=== PATIENT | male | born 1980 | race Caucasian/White ===

== ENCOUNTER 2022-01-24 04:40 | Inpatient (IN) | payer OTHER, SELFPAY ==
[2022-01-24] VITALS (13 sets, daily range): BP systolic 115–145; BP diastolic 83–99; PULSE 75–99; RESP 16–18; TEMP 36.4–37.8; O2SAT 83–96; BMI 26.9
[2022-01-24] MEDS: KETOROLAC 15 MG/ML inj IVP ×2 (05:23→17:12)
[2022-01-24 05:30] LABS: Lactate* 0.7 mmol/L (0.5-1.9)
[2022-01-24 05:32] LABS: Basophils Percent Auto 0.3 % (0.0-3.0); Eosinophils Percent Auto 0.6 % (0.0-7.0); Hematocrit 44.1 % (37.0-53.0); Hemoglobin* 15.3 gm/dL (13.5-17.5); Immature Granulocytes Abs Auto 0.03 K/uL (0.00-0.30); Lymphocytes Percent Auto 8.5 % (20-44); Mean Corpuscular HGB Conc 35 gm/dL (32-36); Mean Corpuscular Hemoglobin 32 pg (26-34); Mean Corpuscular Volume 91 fL (80-100); Monocytes Percent Auto 7.9 % (0.0-11.0); Neutrophils Percent Auto 82.5 % (42.0-72.0); Platelet Count* 227 K/uL (140-440); RDW Coefficient of Variation % 12.4 % (11.5-15.5); Red Blood Count 4.83 m/uL (4.30-5.90)
[2022-01-24 05:37] LABS: Slide Review Reflex No
[2022-01-24 05:55] LABS: Albumin* 4.4 g/dL (3.3-5.0); Chloride* 104 mmol/L (96-114)
[2022-01-24 05:56] LABS: Potassium* 4.1 mmol/L (3.6-5.1); Sodium* 136 mmol/L (135-149)
[2022-01-24 05:58] LABS: Mononuclear WBC Body Fluid* 45 %; Polynuclear WBC Body Fluid* 55 %; RBC, Body Fluid* 19000; WBC, Body Fluid* 84
[2022-01-24 05:58] LABS: Alanine Aminotransferase* 23 U/L (4-50); Alkaline Phosphatase* 91 U/L (40-150); Aspartate Amino Transferase* 26 U/L (12-35); Bilirubin Direct* 0.1 mg/dL (0.0-0.5); Bilirubin Total* 0.9 mg/dL (0.1-1.5); Creatinine* 0.9 mg/dL (0.5-1.5); Estimated Glomerular Filt Rate 109 ml/min
[2022-01-24 05:59] LABS: Blood Urea Nitrogen* 12 mg/dL (5-24); Calcium* 9.3 mg/dL (8.4-10.6); Carbon Dioxide* 23 mmol/L (20-32); Glucose* 130 mg/dL (60-115)
[2022-01-24 06:01] LABS: BF Color Blood Tinged; BF Total Volume* 2
[2022-01-24 06:02] LABS: BF Clarity* Slightly Cloudy
[2022-01-24 06:02] LABS: C Reactive Protein* 4.5 mg/dL (0.5-1.0)
[2022-01-24 06:11] LABS: SARS PCR* Negative SARS-CoV-2 (Negative)
[2022-01-24 06:21] LABS: Erythrocyte SedimentationRate* 4 mm/hr (2-15)
--- NOTE | 2022-01-24 06:52 | ED.GENADULT ---
HPI - General Adult General Date Seen: 01/24/22 Chief complaint: Extremity Pain/Injury, Lower Stated complaint: sprain right knee Time Seen by Provider: 01/24/22 04:47 Source: patient History of Present Illness HPI narrative: Patient is a 41-year-old male who describes pain, swelling and redness developing in his right knee starting 2 days ago. Pain has worsened to the point that it is now severe, he is not able to walk and is not able to bend his knee. He has not had fevers that he knows of at home. Denies any trauma. No other joints are bothering him. Has never had anything like this before. Does take an immunosuppressant medication for ulcerative colitis. Denies any history of drug use. Drinks occasionally, no tobacco use. Has not had any chest pain, shortness of breath, vomiting or diarrhea. No other infectious complaints such as sore throat or cough. No other recent infections. Related Data Home Medications Medication Instructions Recorded Confirmed balsalazide 750 mg capsule 3,000 - 3,750 mg PO BID 01/24/22 01/24/22 Allergies Allergy/AdvReac Type Severity Reaction Status Date / Time No Known Drug Allergies Allergy Verified 01/24/22 04:52 Review of Systems Status of ROS: Reports: 10 or more systems reviewed and unremarkable except as noted in History and below [facility] Medical History Ulcerative colitis Social History Smoking Status: Unknown if ever smoked Non-prescribed substance use: denies use service: No Exam Narrative: Exam Narrative: Vital signs as noted above. In general, an alert, nontoxic male. Head: Normocephalic, atraumatic. Eyes: Pupils are equal reactive. Extraocular movements are full. Conjunctivae are normal. ENT: Mucous membranes are moist. Throat is normal. Neck: Supple without lymphadenopathy. Heart: Regular rate and rhythm. No murmur or rub. Lungs: Clear bilaterally. No increased work of breathing, crackles or wheezes. Abdomen: Soft and nontender. No organomegaly. Extremities: On the right lower extremity, there is erythema surrounding the right knee. There is some swelling of the prepatellar bursa and small effusion of the knee joint as well. He is hesitant to do any range of motion of the knee secondary to pain. Distal CMS is normal. Erythema extends approximately 5 cm proximally and distally to the knee. There is warmth and he complains of significant tenderness throughout the knee. No crepitus or subQ air. Neurologic: Patient is alert and oriented to person and place. Speech is fluent. Face is symmetric. Moves all extremities equally. Affect: Normal. Skin: Warm and dry. Well perfused. Const: Vital Signs, click to edit/add: Vital Signs - 24 hr 01/24/22 04:48 01/24/22 05:23 01/24/22 06:13 Temperature 100.1 F H 100.1 F H Pulse Rate [Left P ulse Oximeter] 97 86 Respiratory Rate 18 18 Blood Pressure [Ri ght Upper Arm] 142/93 H 132/91 H Pulse Oximetry 96 96 Oxygen Delivery Me thod Room Air Room Air 01/24/22 07:40 01/24/22 07:48 Temperature 99.1 F Pulse Rate [Left P ulse Oximeter] 85 Respiratory Rate 18 Blood Pressure [Ri ght Upper Arm] 128/84 Pulse Oximetry 96 Oxygen Delivery Me thod Room Air Documenting provider has reviewed patient's vital signs: yes Course Course Hospital Course: Following initial evaluation, we placed an IV and nelly labs. I did recommend that we get fluid from the knee joint secondary to complaints of severe pain with bending the knee and inability to walk. My concern was for a septic joint. Consent was obtained. Discussed that there is the possibility that in performing the procedure through infected tissue we could potentially infect the joint. Procedure note: The skin lateral to the knee joint was anesthetized using lidocaine with epinephrine. Skin was prepped with chlorhexidine. I used a 25 gauge needle to enter the knee joint. A small amount of synovial fluid was removed. Fluid appeared clear. Patient tolerated the procedure well. A bandage was applied. Labs show a white blood cell count of 12.6. Hemoglobin of 15.3. CRP elevated at 4.8. Lactate was negative. Metabolic panel and LFTs are normal. Synovial fluid of the knee joint rib returned showing a white blood cell count of 84. This is reassuring in ruling out septic joint. I do think he has cellulitis, and perhaps prepatellar bursitis as well. I recommended that we try to get some fluid from the prepatellar bursa. On exam, it did feel fairly fluctuant. However, there was only a small amount of fluid obtained when I aspirated the bursa. This fluid is sent to lab as well. We will start him on vancomycin given his fever and immunocompromised status. He will be admitted to the hospital for IV antibiotics, orthopedic consultation if needed. He had Toradol for pain, he says he is comfortable right now as long as he does not move his knee. He declines the need for anything further for pain at this time. COVID was negative. Vital Signs Vital signs: Initial Vital Signs Temperature 100.1 F H 01/24/22 04:48 Temperature Source Temporal Artery Scan 01/24/22 04:48 Pulse Rate 97 01/24/22 04:48 Pulse Rhythm 01/24/22 04:48 Respiratory Rate 18 01/24/22 04:48 Blood Pressure 142/93 H 01/24/22 04:48 Blood Pressure Mean 109 01/24/22 04:48 Blood Pressure Position Semi-Fowlers 01/24/22 04:48 Pulse Oximetry 96 01/24/22 04:48 Oxygen Delivery Method 01/24/22 04:48 Vital Signs Temperature 100.1 F H 01/24/22 04:48 Pulse Rate 97 01/24/22 04:48 Respiratory Rate 18 01/24/22 04:48 Blood Pressure 142/93 H 01/24/22 04:48 Pulse Oximetry 96 01/24/22 04:48 Oxygen Delivery Method 01/24/22 04:48 Temperature 99.1 F 01/24/22 07:48 Pulse Rate 85 01/24/22 07:40 Respiratory Rate 18 01/24/22 07:40 Blood Pressure 128/84 01/24/22 07:40 Pulse Oximetry 96 01/24/22 07:40 Oxygen Delivery Method 01/24/22 07:40 Medical Decision Making Lab Data Labs: Lab Results 01/24/22 01/24/22 01/24/22 Range/Units 05:15 05:15 05:15 WBC 12.60 H (4.50-11.00) K/uL RBC 4.83 (4.30-5.90) m/uL Hgb 15.3 (13.5-17.5) gm/dL Hct 44.1 (37.0-53.0) % MCV 91 (80-100) fL MCH 32 (26-34) pg MCHC 35 (32-36) gm/dL RDW Coeff of Waldo 12.4 (11.5-15.5) % Plt Count 227 (140-440) K/uL Neut % (Auto) 82.5 H (42.0-72.0) % Lymph % (Auto) 8.5 L (20-44) % [place] % (Auto) 7.9 (0.0-11.0) % Eos % (Auto) 0.6 (0.0-7.0) % Baso % (Auto) 0.3 (0.0-3.0) % Neut # (Auto) 10.40 H (1.7-7.0) K/uL Lymph # (Auto) 1.10 (0.90-2.90) K/uL [place] # (Auto) 1.00 H (0.00-0.90) K/UL Eos # (Auto) 0.10 (0.00-0.50) K/uL Baso # (Auto) 0.00 (0.00-0.30) K/uL Abs Immat Gran (auto) 0.03 (0.00-0.30) K/uL ESR 4 (2-15) mm/hr Sodium 136 (135-149) mmol/L Potassium 4.1 (3.6-5.1) mmol/L Chloride 104 (96-114) mmol/L Carbon Dioxide 23 (20-32) mmol/L BUN 12 (5-24) mg/dL Creatinine 0.9 (0.5-1.5) mg/dL Estimated GFR 109 ml/min Glucose 130 H (60-115) mg/dL Lactate (0.5-1.9) mmol/L Calcium 9.3 (8.4-10.6) mg/dL Total Bilirubin (0.1-1.5) mg/dL Direct Bilirubin (0.0-0.5) mg/dL AST (12-35) U/L ALT (4-50) U/L Alkaline Phosphatase (40-150) U/L C-Reactive Protein 4.5 H (0.5-1.0) mg/dL Total Protein (6.0-8.3) g/dL Albumin (3.3-5.0) g/dL Fluid Volume Fluid Color Fluid Appearance Fluid WBC Fluid RBC Fluid Polynuclear WBCs % Fluid Mononuclear WBCs % SARS-CoV-2 (PCR) (Negative) 01/24/22 01/24/22 01/24/22 Range/Units 05:15 05:15 05:20 WBC (4.50-11.00) K/uL RBC (4.30-5.90) m/uL Hgb (13.5-17.5) gm/dL Hct (37.0-53.0) % MCV (80-100) fL MCH (26-34) pg MCHC (32-36) gm/dL RDW Coeff of Waldo (11.5-15.5) % Plt Count (140-440) K/uL Neut % (Auto) (42.0-72.0) % Lymph % (Auto) (20-44) % [place] % (Auto) (0.0-11.0) % Eos % (Auto) (0.0-7.0) % Baso % (Auto) (0.0-3.0) % Neut # (Auto) (1.7-7.0) K/uL Lymph # (Auto) (0.90-2.90) K/uL [place] # (Auto) (0.00-0.90) K/UL Eos # (Auto) (0.00-0.50) K/uL Baso # (Auto) (0.00-0.30) K/uL Abs Immat Gran (auto) (0.00-0.30) K/uL ESR (2-15) mm/hr Sodium (135-149) mmol/L Potassium (3.6-5.1) mmol/L Chloride (96-114) mmol/L Carbon Dioxide (20-32) mmol/L BUN (5-24) mg/dL Creatinine (0.5-1.5) mg/dL Estimated GFR ml/min Glucose (60-115) mg/dL Lactate 0.7 (0.5-1.9) mmol/L Calcium (8.4-10.6) mg/dL Total Bilirubin 0.9 (0.1-1.5) mg/dL Direct Bilirubin 0.1 (0.0-0.5) mg/dL AST 26 (12-35) U/L ALT 23 (4-50) U/L Alkaline Phosphatase 91 (40-150) U/L C-Reactive Protein (0.5-1.0) mg/dL Total Protein 7.0 (6.0-8.3) g/dL Albumin 4.4 (3.3-5.0) g/dL Fluid Volume Fluid Color Fluid Appearance Fluid WBC Fluid RBC Fluid Polynuclear WBCs % Fluid Mononuclear WBCs % SARS-CoV-2 (PCR) Negative SARS-CoV-2 (Negative) 01/24/22 01/24/22 Range/Units 05:47 06:49 WBC (4.50-11.00) K/uL RBC (4.30-5.90) m/uL Hgb (13.5-17.5) gm/dL Hct (37.0-53.0) % MCV (80-100) fL MCH (26-34) pg MCHC (32-36) gm/dL RDW Coeff of Waldo (11.5-15.5) % Plt Count (140-440) K/uL Neut % (Auto) (42.0-72.0) % Lymph % (Auto) (20-44) % [place] % (Auto) (0.0-11.0) % Eos % (Auto) (0.0-7.0) % Baso % (Auto) (0.0-3.0) % Neut # (Auto) (1.7-7.0) K/uL Lymph # (Auto) (0.90-2.90) K/uL [place] # (Auto) (0.00-0.90) K/UL Eos # (Auto) (0.00-0.50) K/uL Baso # (Auto) (0.00-0.30) K/uL Abs Immat Gran (auto) (0.00-0.30) K/uL ESR (2-15) mm/hr Sodium (135-149) mmol/L Potassium (3.6-5.1) mmol/L Chloride (96-114) mmol/L Carbon Dioxide (20-32) mmol/L BUN (5-24) mg/dL Creatinine (0.5-1.5) mg/dL Estimated GFR ml/min Glucose (60-115) mg/dL Lactate (0.5-1.9) mmol/L Calcium (8.4-10.6) mg/dL Total Bilirubin (0.1-1.5) mg/dL Direct Bilirubin (0.0-0.5) mg/dL AST (12-35) U/L ALT (4-50) U/L Alkaline Phosphatase (40-150) U/L C-Reactive Protein (0.5-1.0) mg/dL Total Protein (6.0-8.3) g/dL Albumin (3.3-5.0) g/dL Fluid Volume 2 0.25 Fluid Color Blood Tinged A Blood Tinged A Fluid Appearance Slightly Cloudy A Slightly Cloudy A Fluid WBC 84 6660 Fluid RBC 29767 13468 Fluid Polynuclear WBCs 55 83 % Fluid Mononuclear WBCs 45 17 % SARS-CoV-2 (PCR) (Negative) Discharge Plan Discharge Clinical Impression: Cellulitis of knee, right Patient Disposition: Admitted As Inpatient Condition: Stable
--- NOTE | 2022-01-24 07:06 | W.PC.EDHO ---
Primary Language: Preferred Language: Orientation Status: [] Alert & Oriented [] Slight Confusion [] Known Dx Dementia Transfers By: [] Assist of 1 [] Assist of 2 [] Lift Active Medications Generic Name Dose Route Start Last Admin Trade Name Patricia PRN Reason Stop Dose Admin Ketorolac Tromethamine 15 mg 01/24/22 05:05 01/24/22 05:23 Ketorolac 15 Mg/Ml Inj IVP 01/24/22 05:06 15 mg ONCE ONE Administration Lidocaine/Epinephrine 2 ml 01/24/22 05:05 01/24/22 05:50 Lidocaine 1%-Epi 1:100,000 20 Ml INFILTRATI 01/24/22 05:06 2 ml ONCE ONE Administration Description of Symptoms ED Triage Present Problem pt has pain and swelling to right knee, started Description last saturday. unknown cause. no reported trauma. CMS to extremity. ED Triage Date of Onset of 01/21/22 Symptoms Pain Pain Intensity 6 Pain Intensity 6 Pain Scale Used Numeric (1 - 10) Pain Scale Used Numeric (1 - 10) Oxygen Administration Pulse Oximetry 96 Pulse Oximetry 96 Oxygen Delivery Method Room Air Oxygen Delivery Method Room Air
[2022-01-24 07:15] LABS: Mononuclear WBC Body Fluid* 17 %; Polynuclear WBC Body Fluid* 83 %; RBC, Body Fluid* 14000; WBC, Body Fluid* 6660
[2022-01-24 07:19] LABS: BF Clarity* Slightly Cloudy; BF Color Blood Tinged; BF Total Volume* 0.25
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
[2022-01-24] MEDS: MORPHINE 4 MG/ML INJ IVP (09:56)
--- NOTE | 2022-01-24 13:04 | PC.NURSE ---
Pt admitted to m/s floor at 0920 - pain 10/15 during admission. Morphine given IV. Vanco completed and saline locked. R knee warm and pink, outlined with marker. SCD's applied, pt answering questions appropriately. Afebrile. Currently sleeping in room.
--- NOTE | 2022-01-24 13:19 | REH.PT ---
Spoke with Dr. Fragoso. Pt awaiting Ortho consult/treatment for infected knee. Per Nurse, Glen, pt is using a walker in the room to get to bathroom. Will hold on PT eval until tomorrow, post Ortho consult.
[2022-01-24] MEDS: ACETAMINOPHEN 325 MG TABLET 975 MG PO (14:27)
[2022-01-24] MEDS: OXYCODONE 5 MG TABLET PO (14:28)
--- NOTE | 2022-01-24 19:21 | PC.NURSE ---
Pt moving well indep in room with walker. Toradol for pain, elevating RLE, and Ice. Erythema within lines drawn at admit. Continue IV vanco.
[2022-01-24] MEDS: ENOXAPARIN 40 MG/0.4 ML INJ SUBCUT (21:02)
[2022-01-25 03:00] VITALS: PULSE 75; RESP 14; O2SAT 96
--- NOTE | 2022-01-25 05:45 | PC.NURSE ---
Shift Note -: Pt pleasant and cooperative, VSS, afebrile, LS clear, BS active, pain reported as tolerable. Pt up independently in room. Pt showered in the evening hours. See eMAR for medication administration.
[2022-01-25 07:00] VITALS: BP 136/98; PULSE 88; RESP 18; TEMP 36.8; O2SAT 94
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
[2022-01-25] MEDS: KETOROLAC 15 MG/ML inj IVP ×2 (08:01→17:38)
[2022-01-25 08:14] LABS: Basophils Percent Auto 0.2 % (0.0-3.0); Eosinophils Percent Auto 0.8 % (0.0-7.0); Hematocrit 45.5 % (37.0-53.0); Hemoglobin* 15.4 gm/dL (13.5-17.5); Immature Granulocytes Abs Auto 0.03 K/uL (0.00-0.30); Lymphocytes Percent Auto 12.6 % (20-44); Mean Corpuscular HGB Conc 34 gm/dL (32-36); Mean Corpuscular Hemoglobin 32 pg (26-34); Mean Corpuscular Volume 93 fL (80-100); Neutrophils Percent Auto 78.2 % (42.0-72.0); Platelet Count* 234 K/uL (140-440); RDW Coefficient of Variation % 12.2 % (11.5-15.5); Red Blood Count 4.88 m/uL (4.30-5.90); White Blood Count* 12.18 K/uL (4.50-11.00)
[2022-01-25 08:17] LABS: Slide Review Reflex No
[2022-01-25 08:41] LABS: Chloride* 106 mmol/L (96-114); Potassium* 4.4 mmol/L (3.6-5.1); Sodium* 137 mmol/L (135-149)
[2022-01-25 08:44] LABS: Est. Creatinine Clearance* 105.62; Estimated Glomerular Filt Rate 96 ml/min
[2022-01-25 08:45] LABS: Blood Urea Nitrogen* 11 mg/dL (5-24); Carbon Dioxide* 25 mmol/L (20-32); Glucose* 117 mg/dL (60-115)
[2022-01-25 08:48] LABS: C Reactive Protein* 8.4 mg/dL (0.5-1.0)
[2022-01-25] MEDS: ACETAMINOPHEN 325 MG TABLET 975 MG PO ×2 (09:06→20:24)
[2022-01-25] MEDS: CELECOXIB 200 MG CAPSULE PO (09:07)
--- NOTE | 2022-01-25 13:24 | PM.IMPN1 ---
Progress Note: A&P Assessment and plan (1) Cellulitis of knee, right: Status: Acute Assessment and Plan: - continue Vancomycin, improving. Appreciate input from Orthopedic surgery and PT - schedule Tylenol and Celebrex for pain control, oxycodone for severe pain - anticipate discharge home tomorrow on oral antibiotics (requires longer treatment with IV antibiotics given immunosuppressed status) (2) Ulcerative colitis: Status: Acute Assessment and Plan: - continue home medications and outpatient GI follow-up Plan - per above Subjective Date Seen: 01/25/22 Interval history: Patient is feeling better today, still able to ambulate with moderate discomfort. Notes knee is ?stiff? in the morning. + relief with Toradol. It is no fevers. Tolerating vancomycin. Has been seen by Orthopedic surgery and Physical therapy. Blood and aspirate cultures negative to date. Exam Narrative: Exam Narrative: GEN: Alert and oriented, nontoxic in appearance HEENT: Normal external ears, EOMIs bilaterally, no scleral icterus CV: RRR, No concerning murmurs, rubs, or gallops R: LCTA bilaterally without concerning wheezing, rales, or rhonchi Ext: R knee continues to have erythema and edema, improved from admission. No crepitus over palpation of the joint, but moderate ttp. + discomfort with movement, particularly flexion Skin: No other concerning skin lesions or rashes on exposed skin Neuro: Nonfocal Psych: Appropriate Const: Vital Signs, click to edit/add: Vital Signs - 24 hr 01/24/22 14:27 01/24/22 15:00 01/24/22 15:00 Temperature 98.5 F 98.5 F Pulse Rate [Right Pulse Oximeter] 96 Respiratory Rate 16 18 Blood Pressure [Le ft Arm] 135/99 H Pulse Oximetry 96 Oxygen Delivery Me thod Room Air 01/24/22 15:10 01/24/22 15:10 01/24/22 19:54 Temperature 98.5 F 97.6 F Pulse Rate [Right Pulse Oximeter] 96 96 75 Respiratory Rate 18 16 Blood Pressure [Le ft Arm] 145/94 H 115/83 Pulse Oximetry 95 96 Oxygen Delivery Me thod Room Air Room Air 01/24/22 23:00 01/25/22 03:00 01/24/22 23:00 Temperature Pulse Rate [Right Pulse Oximeter] 75 75 Respiratory Rate 16 14 16 Blood Pressure [Le ft Arm] Pulse Oximetry 96 Oxygen Delivery Me thod Room Air 01/25/22 07:00 01/25/22 07:00 Temperature 98.2 F Pulse Rate [Right Pulse Oximeter] 88 88 Respiratory Rate 18 18 Blood Pressure [Le ft Arm] 136/98 H Pulse Oximetry 94 Oxygen Delivery Me thod Room Air Labs Labs: Laboratory Results - last 24 hr 01/25/22 01/25/22 08:09 08:09 WBC 12.18 H RBC 4.88 Hgb 15.4 Hct 45.5 MCV 93 MCH 32 MCHC 34 RDW Coeff of Waldo 12.2 Plt Count 234 Neut % (Auto) 78.2 H Lymph % (Auto) 12.6 L [place] % (Auto) 8.0 Eos % (Auto) 0.8 Baso % (Auto) 0.2 Neut # (Auto) 9.50 H Lymph # (Auto) 1.50 [place] # (Auto) 1.00 H Eos # (Auto) 0.10 Baso # (Auto) 0.00 Abs Immat Gran (auto) 0.03 Sodium 137 Potassium 4.4 Chloride 106 Carbon Dioxide 25 BUN 11 Creatinine 1.0 Estimated Creat Clear 105.62 Estimated GFR 96 Glucose 117 H Calcium 9.0 C-Reactive Protein 8.4 H
--- NOTE | 2022-01-25 14:19 | PC.NURSE ---
End of Shift Note: Patient has done better today. He has been up and ambulating on his own with crutches since PT was in and assessed him. He received pain medication early this morning and has not requested any pain medication since. Will continue to monitor until next shift.
[2022-01-25 15:00] VITALS: BP 120/85; PULSE 72; RESP 16; RESP 18; TEMP 36.6; O2SAT 97
[2022-01-25 18:48] VITALS: TEMP 36.6
[2022-01-25 20:08] VITALS: BP 139/97; PULSE 80; RESP 18; TEMP 37.1; O2SAT 98
[2022-01-25] MEDS: 0.9 % SODIUM CHLORIDE 250 ml IV (20:15)
[2022-01-25] MEDS: ENOXAPARIN 40 MG/0.4 ML INJ SUBCUT ×2 (20:16→20:25)
[2022-01-25] MEDS: SODIUM CHLORIDE 0.9 % (FLUSH) 10 ML SYRINGE IVF (20:26)
[2022-01-26] VITALS: BP 131/83; PULSE 71; RESP 18; TEMP 36.4; O2SAT 94
[2022-01-26 04:00] VITALS: BP 129/85; PULSE 64; RESP 18; TEMP 36.5; O2SAT 94
--- NOTE | 2022-01-26 05:47 | PC.NURSE ---
Pt has been sleeping most of the shift. Denied pain and discomfort. V/s WNL. No N/V. Right knee appears mild reddened.
[2022-01-26] MEDS: KETOROLAC 15 MG/ML inj IVP (07:45)
[2022-01-26] MEDS: SODIUM CHLORIDE 0.9 % (FLUSH) 10 ML SYRINGE IVF (07:45)
[2022-01-26 08:02] VITALS: RESP 18; TEMP 36.5
[2022-01-26 08:05] LABS: Basophils Absolute Auto 0.04 K/uL (0.00-0.30); Basophils Percent Auto 0.5 % (0.0-3.0); Eosinophils Absolute Auto 0.19 K/uL (0.00-0.50); Eosinophils Percent Auto 2.2 % (0.0-7.0); Hematocrit 43.4 % (37.0-53.0); Hemoglobin* 14.6 gm/dL (13.5-17.5); Immature Granulocytes Abs Auto 0.02 K/uL (0.00-0.30); Lymphocytes Percent Auto 12.3 % (20-44); Mean Corpuscular HGB Conc 34 gm/dL (32-36); Mean Corpuscular Hemoglobin 32 pg (26-34); Mean Corpuscular Volume 94 fL (80-100); Monocytes Percent Auto 7.2 % (0.0-11.0); Neutrophils Percent Auto 77.6 % (42.0-72.0); Platelet Count* 234 K/uL (140-440); RDW Coefficient of Variation % 12.1 % (11.5-15.5); Red Blood Count 4.63 m/uL (4.30-5.90); White Blood Count* 8.72 K/uL (4.50-11.00)
--- NOTE | 2022-01-26 08:05 | PM.DS1 ---
DS: Providers Provider Date Seen: 01/26/22 Date of admission: 01/24/22 09:15 Primary care physician: Dayton Madera MD Admitting Clinician: Urmila Fragoso MD Consults: Physical Therapy Orthopedic Surgery Attending Physician on discharge: Urmila Fragoso MD Date of Discharge: 01/26/22 DS: Diagnosis Discharge Diagnosis (1) Cellulitis of knee, right: Status: Acute (2) Ulcerative colitis: Status: Acute DS: Summary Hospital Course Hospital Course: 41-year-old male with history of well controlled ulcerative colitis, admitted to the hospital for prepatellar cellulitis of the right knee. He was noted to have a joint effusion and a prepatellar effusion, both were aspirated in the emergency room with negative Gram stains. Given immunosuppressed status, admitted and started on vancomycin. Blood cultures remained negative throughout stay; culture from the prepatellar bursa grew pansensitive Staph aureus (small amount). Patient remained afebrile throughout stay, and white blood count trended downward. He was comfortable discharging home on oral antibiotics on hospital day 2. He will utilize scheduled Tylenol and NSAIDs for pain control with p.r.n. oxycodone for severe pain. He will see his PCP early next week; further work restrictions to be decided at that time. Time Spent with Patient Time attestation: Total time spent providing and/or coordinating discharge services: Time spent: Greater than 30 minutes Specific discharge activities: medication reconciliation, care coordination and d/c followup Exam Narrative: Exam Narrative: GEN: Alert and oriented, speaking in full sentences HEENT: Normal external ears, EOMIs bilaterally, no scleral icterus CV: RRR, No concerning murmurs, rubs, or gallops R: LCTA bilaterally without concerning wheezing, rales, or rhonchi Ext: R knee erythema has a significantly improved since admission, effusion is also improving. Patient is able to flex with less discomfort than previous, no crepitus or significant ttp Skin: No other concerning skin lesions or rashes on exposed skin Neuro: Nonfocal Psych: Appropriate Const: Vital Signs, click to edit/add: Vital Signs - 24 hr 01/25/22 18:48 01/25/22 15:00 01/25/22 15:00 Temperature 98 F 98 F Pulse Rate [Right Pulse Oximeter] 72 72 Respiratory Rate 18 16 Blood Pressure [Le ft Arm] 120/85 Pulse Oximetry 97 Oxygen Delivery Me thod Room Air 01/25/22 20:08 01/26/22 00:00 01/26/22 00:00 Temperature 98.7 F 97.5 F L Pulse Rate [Right Pulse Oximeter] 80 71 71 Respiratory Rate 18 18 18 Blood Pressure [Le ft Arm] 139/97 H 131/83 Pulse Oximetry 98 94 Oxygen Delivery Me thod Room Air Room Air 01/26/22 04:00 Temperature 97.7 F Pulse Rate [Right Pulse Oximeter] 64 Respiratory Rate 18 Blood Pressure [Le ft Arm] 129/85 Pulse Oximetry 94 Oxygen Delivery Me thod Room Air DS: Data Data Completed and Pending Labs on day of discharge: Labs from last 24 hours 01/26/22 01/26/22 01/25/22 07:44 07:44 08:09 WBC Pending RBC Pending Hgb Pending Hct Pending MCV Pending MCH Pending MCHC Pending RDW Coeff of Waldo Plt Count Pending Neut % (Auto) Pending Lymph % (Auto) Pending [place] % (Auto) Pending Eos % (Auto) Pending Baso % (Auto) Pending Neut # (Auto) Pending Lymph # (Auto) Pending [place] # (Auto) Pending Eos # (Auto) Pending Baso # (Auto) Pending Abs Immat Gran (auto) Sodium Pending 137 Potassium Pending 4.4 Chloride Pending 106 Carbon Dioxide Pending 25 BUN Pending 11 Creatinine Pending 1.0 Estimated Creat Clear 105.62 Estimated GFR Pending 96 Glucose Pending 117 H Calcium Pending 9.0 C-Reactive Protein Pending 8.4 H 01/25/22 08:09 WBC 12.18 H RBC 4.88 Hgb 15.4 Hct 45.5 MCV 93 MCH 32 MCHC 34 RDW Coeff of [place]do 12.2 Plt Count 234 Neut % (Auto) 78.2 H Lymph % (Auto) 12.6 L [place] % (Auto) 8.0 Eos % (Auto) 0.8 Baso % (Auto) 0.2 Neut # (Auto) 9.50 H Lymph # (Auto) 1.50 [place] # (Auto) 1.00 H Eos # (Auto) 0.10 Baso # (Auto) 0.00 Abs Immat Gran (auto) 0.03 Sodium Potassium Chloride Carbon Dioxide BUN Creatinine Estimated Creat Clear Estimated GFR Glucose Calcium C-Reactive Protein Preliminary micro results at discharge 01/24/22 05:47 Body Fluid Culture - Preliminary Synovial Fluid NO GROWTH AFTER 48 HOURS 01/24/22 05:25 Blood Culture - Preliminary Blood NO GROWTH AFTER 48 HOURS 01/24/22 05:15 Blood Culture - Preliminary Blood NO GROWTH AFTER 48 HOURS 01/24/22 06:49 Body Fluid Culture - Preliminary Synovial Fluid Gram positive cocci in cluster Discharge Plan Discharge Disposition: Home, Self-Care Date of Admission: 01/24/22 09:15 Attending Provider on Discharge: Urmila Fragoso Consulting Providers: Myke Rey ; Marija Camacho ; Zara Ledezma ; Casper Chisholm ; Roderick James Primary Care Provider: Dayton Madera Condition: Stable Anticipated Discharge Date/Time: 01/26/22 12:00 Discharge Medications: New cephalexin 500 mg capsule 500 mg PO QID 8 Days Qty: 32 0RF oxycodone 5 mg capsule 5 mg PO Q6H PRN (Reason: pain) Qty: 14 0RF celecoxib [Celebrex] 200 mg capsule 200 mg PO DAILY Qty: 10 0RF Continued balsalazide 750 mg capsule 3,000 - 3,750 mg PO BID Label Comments: TAKE 5 CAPSULES BY MOUTH EVERY MORNING AND 4 CAPSULES AT NIGHT. Discharge Orders: Discharge Order (Routine); Ordered 01/26/22 Ordered By: Urmila Fragoso Patient Education: Cephalexin (By mouth), Oxycodone, Rapid Release (By mouth), Celecoxib (By mouth), Cellulitis (GEN) Additional Instructions: Tylenol scheduled (depending on which dose you get, take either 1000mg every 12 hours, or 650mg every 8 hours). For anti-inflammation, take the Celebrex once/day. If your insurance DOESN'T cover the Celebrex, get Aleve and take this 1-2 times/day (no Ibuprofen or Advil while on Aleve or Celebrex). Make sure you're taking a probiotic every day while on antibiotics (yogurt, kombucha, etc). Move a little every day to minimize stiffness, but do NOT overdo activity. No work until after you see Dr. Santy. Activity Level: No strenuous activity and Use Crutches Discharge Diet: Regular Follow Up Appointments: Dayton Madera MD [Primary Care Provider] - 01/29/22 9:00 am Forms: [employer] Info Instructions
[2022-01-26 08:09] LABS: Slide Review Reflex No
[2022-01-26 08:17] LABS: Chloride* 107 mmol/L (96-114); Sodium* 141 mmol/L (135-149)
[2022-01-26 08:18] LABS: Potassium* 4.7 mmol/L (3.6-5.1)
[2022-01-26 08:20] LABS: Creatinine* 0.9 mg/dL (0.5-1.5); Est. Creatinine Clearance* 117.36; Estimated Glomerular Filt Rate 109 ml/min
[2022-01-26 08:21] LABS: Blood Urea Nitrogen* 12 mg/dL (5-24); Carbon Dioxide* 27 mmol/L (20-32); Glucose* 112 mg/dL (60-115)
[2022-01-26 08:24] LABS: C Reactive Protein* 6.3 mg/dL (0.5-1.0)
[2022-01-26] MEDS: ACETAMINOPHEN 325 MG TABLET 975 MG PO (08:58)
[2022-01-26] MEDS: CELECOXIB 200 MG CAPSULE PO (08:58)
[2022-01-26 09:42] VITALS: BP 140/99; PULSE 86; RESP 16; TEMP 36.6; O2SAT 96
== END 2022-01-26 10:03 | disposition home or self-care (01) | DRG 603 ==
LOC: ED 06:59 → MEDSURG 09:15
PROVIDERS: Admitting Provider Family Medicine; Emergency Provider Emergency Medicine; PCP Family Medicine; Visit Provider Family Medicine
DX: L03.115 Cellulitis of right lower limb (principal); K51.90 Ulcerative colitis, unspecified, without complications; M25.461 Effusion, right knee; B95.61 Methicillin susceptible Staphylococcus aureus infection as the cause of diseases classified elsewhere
CPT/HCPCS: 36415; 80048; 80076; 83605; 85025; 85651; 86140; 87040; 87070; 87186; 87205; 87635; 89051; 97110; 97116; 97161; 99283; 99284; A9270; J1650; J1885; J2270; J3370; J7050; J7120

== ENCOUNTER 2024-07-02 14:41 | Day surgery (SDC) | payer SELFPAY ==
[2024-07-02] VITALS (18 sets, daily range): BP systolic 124–162; BP diastolic 79–109; PULSE 7–91; RESP 12–18; TEMP 36.2–37.2; O2SAT 93–99; BMI 27.1; BMI 27.6
--- NOTE | 2024-07-02 15:42 | CRLHL7_ITS ---
For Patients: As a result of the Century Cures Act, medical imaging exams and procedure reports are released immediately into your electronic medical record. You may view this report before your referring provider. If you have questions, please contact your health care provider. INDICATION: Lower right-sided abdominal pain. TECHNIQUE: CT abdomen and pelvis acquired with 98 cc of Isovue 370 IV contrast. COMPARISON: None. FINDINGS: Lower chest: Unremarkable. Liver: Fatty change. No focal lesion. Spleen: Unremarkable. Pancreas: Unremarkable. Gallbladder and bile ducts: No calcified stones or biliary ductal dilatation. Kidneys: Unremarkable. Adrenal glands: Unremarkable. GI tract: The appendix is distended to 12 mm with wall thickening, enhancement and periappendiceal stranding. No free air, free fluid or suspicious fluid collection. No bowel obstruction. Lymph nodes: No pathologic lymphadenopathy. Vascular structures: Unremarkable. Pelvic Organs: Unremarkable. Bones: Posterior spinal fusion hardware at L4 through S1 appears intact. Plate and screw fixation hardware across the pubic symphysis also appears intact. Mild degenerative changes spine and pelvis. No acute or suspicious abnormality. IMPRESSION: 1. Acute appendicitis. No complicating features evident. 2. Fatty change of the liver. Appendicitis discussed with Dr. Aquino by telephone at 5:06 p.m. on 07/02/2024. Dictated by Raymond Pineda MD @ 07/02/2024 5:04:34 PM Please note that all CT scans at this facility use dose modulation, iterative reconstruction, and/or weight-based dosing when appropriate to reduce radiation dose to as low as reasonably achievable. Dictated by: Raymond Pineda MD @ 07/02/2024 17:08:27 (Electronically Signed)
--- NOTE | 2024-07-02 17:00 | ED_ITS ---
HPI - Abdominal Pain General Time Seen by Provider: 17:00 Date Seen: 07/02/24 Chief Complaint: Abdominal Pain Stated Complaint: Lower R abdominal pain Time Seen by Provider: 07/02/24 17:00 Source: patient and RN notes reviewed Mode of arrival: ambulatory Limitations: no limitations History of Present Illness HPI narrative: This 44-year-old male is referred by Urgent Care for concern of potential appendicitis. Patient had a normal white count and basic metabolic panel in Urgent Care today. He reports he does have a history of ulcerative colitis, has not required any medications for some time. When he has had ulcerative colitis flares, well have diarrhea. His last colonoscopy was about 4 years ago, states he is doing another year. He has not had any changes in his bowels. He actually is hungry right now, was not hungry earlier. He last ate at 10:30 a.m. this morning. No nausea or vomiting. Pain is in the right side of his abdomen. No urinary symptoms. He has no history of kidney stones. There is no family history of kidney stones or appendicitis. He has not had any prior abdominal surgeries. He has not noted any fevers. MD elicited complaint: abdominal pain Related Data Previous Rx's ?Medication ?Instructions ?Recorded albuterol sulfate 90 mcg/actuation 2 puff inhalation Q4-6H PRN 05/26/24 aerosol inhaler shortness of breath or wheezing #6.7 grams Allergies Allergy/AdvReac Type Severity Reaction Status Date / Time No Known Drug Allergies Allergy Verified 07/02/24 16:11 Review of Systems Status of ROS Reports: 6 or more systems reviewed and unremarkable except as noted in History and below PFSH PFS Medical History Ulcerative colitis ?K51.90 - Ulcerative colitis, unspecified, without complications (ICD-10) Surgical History Status post tendon repair ?Z98.890 - Other specified postprocedural states (ICD-10) Status post open reduction and internal fixation (ORIF) of fracture ?Z98.890 - Other specified postprocedural states (ICD-10) ?Z87.81 - Personal history of (healed) traumatic fracture (ICD-10) Status post lumbar spinal fusion ?Z98.1 - Arthrodesis status (ICD-10) Social History Highest level of school completed/degree received: some college, no degree Smoking Status: Never smoker Do you use any of these nicotine containing products: None How often do you have a drink containing alcohol: 2-3 times a week Alcohol type: beer How many standard drinks containing alcohol do you have on a typical day: 3 or 4 How often do you have six or more drinks on one occasion: Less than monthly AUDIT-C Alcohol total score: 5 Non-prescribed substance use: denies use Caffeine: Yes (pop) service: No Exam Const: Vital Signs, click to edit/add: Vital Signs - 24 hr 07/02/24 15:24 07/02/24 17:06 Temperature 99 F Pulse Rate [Pulse Oximeter] 85 76 Respiratory Rate 18 18 Blood Pressure [Ri ght Upper Arm] 149/94 H 145/100 H Pulse Oximetry 99 98 Oxygen Delivery Me thod Room Air Room Air This 44-year-old male is alert, interactive, no apparent distress. Sclera clear, speech normal. Lungs clear, good air entry, no wheezing crackles. CV regular rate and rhythm, no murmur. Abdomen is soft, nondistended, normal bowel sounds. He has right upper quadrant abdominal pain that progressively worsens to right lower quadrant, there is guarding in the right lower quadrant, maybe rebound. I do not feel any organomegaly or masses anywhere. Documenting provider has reviewed patient's vital signs: yes Course Course ED Course: Have offered patient some pain management, he is not really sure. Did discuss we could do something as simple as an IV dose of Toradol which is non narcotic. He does agree to do this. He also is advised to stay NPO until we have CT reading back. Did review with him the radiologist was reading the scan when I a was coming back to see him, we should have results quite quickly hopefully. Main differential for me would be appendicitis verses ulcerative colitis flare. Do suspect that this certainly could be appendicitis the with his presentation and lack of other GI symptoms that would suggest ulcerative colitis. Patient had blood work at Urgent Care, will not repeat anything here. Consultations Consultation #1: Dr. Pineda the radiologist did call to make sure I was aware that the CT is showing acute uncomplicated appendicitis. Time: 17:06 Consultation #2: Have spoken with Dr. Peraza general surgeon regarding patient. She will review CT, requests Zosyn and will contact appropriate staff and let us know when surgery will happen. Will update patient that he does have acute uncomplicated appendicitis and plan from the surgeon. Time: 17:10 Vital Signs Vital signs: Initial Vital Signs Temperature 99 F 07/02/24 15:24 Temperature Source Temporal Artery Scan 07/02/24 15:24 Pulse Rate 85 07/02/24 15:24 Respiratory Rate 18 07/02/24 15:24 Blood Pressure 149/94 H 07/02/24 15:24 Blood Pressure Mean 112 H 07/02/24 15:24 Pulse Oximetry 99 07/02/24 15:24 Oxygen Delivery Method Room Air 07/02/24 15:24 Vital Signs Temperature 99 F 07/02/24 15:24 Pulse Rate 85 07/02/24 15:24 Respiratory Rate 18 07/02/24 15:24 Blood Pressure 149/94 H 07/02/24 15:24 Pulse Oximetry 99 07/02/24 15:24 Oxygen Delivery Method Room Air 07/02/24 15:24 Temperature 99 F 07/02/24 15:24 Pulse Rate 76 07/02/24 17:06 Respiratory Rate 18 07/02/24 17:06 Blood Pressure 145/100 H 07/02/24 17:06 Pulse Oximetry 98 07/02/24 17:06 Oxygen Delivery Method Room Air 07/02/24 17:06 Medications Administered Medications: Generic Name Dose Route Start Last Admin Trade Name Freq PRN Reason Stop Dose Admin Lactated Ringer's 1,000 mls @ 500 mls/hr 07/02/24 17:09 07/02/24 17:36 Lactated Ringers 1000 Ml IV 07/02/24 19:08 500 mls/hr .Q2H ZEIAN Administration Discontinued Medications Generic Name Dose Route Start Last Admin Trade Name Freq PRN Reason Stop Dose Admin Piperacillin Sod/Tazobactam 100 mls @ 200 mls/hr 07/02/24 17:09 07/02/24 17:35 Sod 3.375 gm/ Sodium Chloride IVPB 07/02/24 17:10 200 mls/hr ONCE ONE Administration Ketorolac Tromethamine 15 mg 07/02/24 17:09 07/02/24 17:35 Ketorolac 15 Mg/Ml Inj IVP 07/02/24 17:10 15 mg ONCE ONE Administration MDM - Abdominal Pain Lab Data Attestation: I reviewed the patient's lab results. Lab results narrative: White blood count from clinic was 10,510, hemoglobin normal at 15.5, platelet count [id number]. His point of care basic showed normal glucose of 101, sodium of 134, potassium of 4.1, chloride 104, bicarb of 22, creatinine of 1.3. Imaging Data CT scan - abdomen: Attestation: I have reviewed the pertinent imaging results. Radiologist's impression: Patient: MARIKA KUO Facility:?[facility] Patient ID:?[id number] Site Patient ID:?[id number]. Site :?[id number] Study:?CT-Abdomen/Pelvis W/ 98CC ISOVUE 370-07/02/2024 4:18:25 PM Ordering Physician:?PROVIDER TEMP Final Report: INDICATION: Lower right-sided abdominal pain. TECHNIQUE: CT abdomen and pelvis acquired with 98 cc of Isovue 370 IV contrast. COMPARISON: None. FINDINGS: Lower chest: Unremarkable. Liver: Fatty change. No focal lesion. Spleen: Unremarkable. Pancreas: Unremarkable. Gallbladder and bile ducts: No calcified stones or biliary ductal dilatation. Kidneys: Unremarkable. Adrenal glands: Unremarkable. GI tract: The appendix is distended to 12 mm with wall thickening, enhancement and periappendiceal stranding. No free air, free fluid or suspicious fluid collection. No bowel obstruction. Lymph nodes: No pathologic lymphadenopathy. Vascular structures: Unremarkable. Pelvic Organs: Unremarkable. Bones: Posterior spinal fusion hardware at L4 through S1 appears intact. Plate and screw fixation hardware across the pubic symphysis also appears intact. Mild degenerative changes spine and pelvis. No acute or suspicious abnormality. IMPRESSION: 1. Acute appendicitis. No complicating features evident. 2. Fatty change of the liver. Appendicitis discussed with Dr. Aquino by telephone at 5:06 p.m. on 07/02/2024. Dictated by Raymond Pineda MD @ 07/02/2024 5:04:34 PM Please note that all CT scans at this facility use dose modulation, iterative reconstruction, and/or weight-based dosing when appropriate to reduce radiation dose to as low as reasonably achievable. Dictated by: Raymond Pineda MD @ 07/02/2024 17:08:27 (Electronic Signature) Discharge Plan Discharge Clinical Impression: Acute appendicitis Qualifiers: Acute appendicitis type: with localized peritonitis Appendicitis gangrene presence: without gangrene Appendicitis perforation presence: without perfo ration Appendicitis abscess presence: without abscess Qualified Code(s): K35.30 - Acute appendicitis with localized peritonitis, without perforation or gangrene Patient Disposition: XFER to OR Prescriptions: No Action albuterol sulfate 90 mcg/actuation HFA aerosol inhaler 2 puff inhalation Q4-6H PRN (Reason: shortness of breath or wheezing) Qty: 6.7 0RF Follow Up/Referrals: Dayton Madera MD [Primary Care Provider] -
--- OUTSIDE RECORDS SUMMARY | 2024-07-02 17:20 | XMS_ITS | Continuity of Care Document ---
Author Organization [facility] Address [address] [address] [place] [address] Phone Care Team Providers Care Director Of Maternity Services Name Role Phone No Information Unavailable Unavailable Allergies, Adverse Reactions, Alerts Substance Reaction Status Criticality No Known Allergies Active No Inform ation Medications Medication Instructions Dosage Effective Dates (start - stop) Status Comments balsalazide 750 mg capsule TAKE 5 CAPSULES BY MOUTH EVERY MORNING AND 4 CAPSULES AT NIGHT. - Active ACETAMINOPHEN (unknown strength) Advice dual action (250 mg) acetaminophen and (125mg) ibuprofen take 2 tablet by oral route everyday. Not Available - Active Procedures Procedure Date Offic/outpt E&m Estab Low-mod 2 Routine Serum Collection Offic/outpt E&m Estab Low-mod 1 Routine Serum Collection Immuniz Admin; 1/combo Vacc/to 21 [id number] Vaccine Urea Nitro; Ezequiel Creatinine; Bld Vitamin D; 25 Hydroxy Routine Serum Collection Ag-immunoassay; Hep B Surface 0 Hepatitis A Antibody; Igg & Ig Hep B Core Antibody Hepatitis B Surface Antibody Bld Ct; Hg/pltlt Ct Auto/compl C-reactive Prot Vitamin D; 25 Hydroxy New Level 4 or 45-59 min Advance Directives Directive Yes / No Effective Date File Name No Information Encounters Encounter Description Practice Location Reason(s) For Visit Diagnoses Date Provider Providers Copied on Encounter [facility], [address] [address], [place], [id number], [place] tel:[phone] No Information 3 No Information [facility], [address] [address], [place], [id number], [place] tel:[phone] [facility] No Information 2 Sammi Andres. [address] [place] [address], [id number], [place]. tel:[phone] Offic/outpt E&m Estab Low-mod [facility], [address] [address], [place], [id number], [place] tel:[phone] [facility] GI Symptoms or Concerns (chief complaint) Left sided ulcerative colitis without complication 2 Edstrsaige Andres. [address] [place] [address], [id number], [place]. tel:[phone] Referring Provider: Referral Self, USE FOR SELF REFERRALS. [facility], [address] [address], [place], [id number], [place] tel:[phone] [facility] No Information 2 Nissa Lancaster. [address] [place] [address], [id number], . tel:[phone] Offic/outpt E&m Estab Low-mod [facility], [address] [address], [place], [id number], [place] tel:[phone] [facility] GI Symptoms or Concerns (chief complaint) Additional Narrative (chief complaint) Other ulcerative colitis without complication 1 Larry Kurtz. [address] [place] [address], [id number], . tel:[phone] Referring Provider: Referral Self, USE FOR SELF REFERRALS. [facility], [address] [address], [place], [id number], [place] tel:[phone] [facility] Other ulcerative colitis without complication 0 Larry Kurtz. [address], [id number], . tel:[phone] [facility], [address] [address], [place], [place], [id number], tel:[phone] [facility] Noninfective gastroenteriti s and colitis, unspecified 0 Larry Kurtz. [address] [facility] [address], [place], [id number], [place]. tel:[phone] Referring Provider: Referral Self, USE FOR SELF REFERRALS. New Level 4 or 45-59 min [facility], [address] [address], [place], [place], [id number], tel:[phone] [facility] GI Symptoms or Concerns (chief complaint) Inflammatory bowel disease 0 Larry Kurtz. [address] [facility] [address], [place], [id number], [place]. tel:[phone] Referring Provider: Ronal Lake, [address] [place] [address], [address]. tel:[phone] Family History Family Member Type Diagnosis Age At Onset Daughter Problem (finding) Alive and well Father Problem (finding) cancer of colon Sister Problem (finding) Alive and well Mother Problem (finding) malignant neop lasm of breast in first degree relative Brother Problem (finding) Alive and well Immunizations Vaccine Date Status Comments Prevnar administered Note: [facility] bi-d irectional interface ; Source: Other Registry Pneumococcal conjugate PCV administere d Source: New Immunization Record Payers Payer name Insurance type Covered democrat ID Authoriza tion(s) [employer] CI [id number] Social History Type Description Quantity Date Captured Comments Sex Male Smoking Status No Information Chief Complaint And Reason For Visit No Information Reason For Referral Reason For Referral No Information Plan Of Treatment Date Type Action Status Referral Ordered: follow-up visit 1 Year Appointment date/timeframe: 1 Year ordered History Of Present Illness Encounter Date Complaint History Of Prese nt Illness GI Symptoms or Concerns Maurilio landis is a 41-year-old male seen in clinic for yearly follow up of left-sided ulcerative colitis with cecal patch.Current treatment: balsalazide 9 pills per day since 11/2019. Other mesalamine products were too expensive. No other prior treatments. Reports he is tolerating the current regimen without difficulty. Reports he has 1-2 soft formed stools every day. Denies bloody stools or urgency. He denies abdominal pain. He denies extra-intestinal symptoms. Reports intermittent mild bloating, relieved with bowel movements. Pt has history of chronic back pain, s/p lumbar fusion in the past. Reports he recently had bilateral SI joint injections, 09/06/21, managed by [facility]. Reports he had been using IB more consistently until the injections. Reports at present rare (1-2x/week) use of NSAIDs. 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 Disease History: UC with cecal patch, diagnosed in 2019. Outside colonoscopy 10/2019 with patchy severe inflammation, characterized by congestion, erythema, friability, and granularity found in the recto-sigmoid colon and in the cecum. The remainder of the exam was normal. Biopsies were consistent with inflammatory bowel disease. Family History: An aunt with ulcerative colitis. Grandfather with rectal cancer history.Vaccination History: Does not get flu vaccine regularlyCOVID-19 vaccine: has not received and is not interested in considering this today. Denies COVID infectionsPneumonia vaccine: PCV-13 on 10/28/20HAV/HBV: non-immune, believes he received vaccination in the pastHad chickenpox as a child; has not received shingles vaccine Additional Narrative Inflammator y bowel disease (suspected UC with cecal patch), diagnosed in 2019Colonoscopy 10/2019 with patchy severe inflammation, characterized by congestion, erythema, friability, and granularity found in the rectosigmoid colon and in the cecum. The remainder of the exam was normal. Biopsies were consistent with inflammatory bowel disease. Current treatment: balsalazide 9 pills per day since 11/2019. Other mesalamine products were too expensive. No other prior treatments. Maurilio does take NSAIDs 2 or 3 times a week for back pain. Has history of broken back and works outdoors doing lots of physical activity. Tries to take Tylenol instead as possible. He denies any tobacco use. No marijuana use. He does drink alcohol, usually just 1 or 2 beers per day and not every day. On the weekends, sometimes he will have a few more beers.Family history of an aunt who has ulcerative colitis. He also reports rectal cancer history in his grandfather.Flu vaccine: does not get flu vaccine regularlyCOVID-19 vaccine: has not receivedPneumonia vaccine: PCV-13 on 10/28/20HAV/HBV: non-immune, believes he received vaccination in the pastHad chickenpox as a child; has not received shingles vaccineDermatology: has not seen previously GI Symptoms or Concerns Maurilio sanchez s a 40-year-old man with a history of left-sided ulcerative colitis with cecal patch diagnosed on colonoscopy at an outside facility in 10/2019. His initial symptoms or bloody loose stools and urgency with cramping. He has been on balsalazide 9 pills per day since 11/2019, with resolution of his symptoms. He presents for routine yearly follow-up. He does complain of some intermittent bloating, which he believes is likely just related to poor diet on occasion. He does still have some urgency, but that is fairly rare. He usually moves his bowels twice per day. His stools are soft but not diarrhea. He has no blood in his stools. He denies abdominal pain. He does have chronic back pain related to heavy physical activity and previous injury. He denies extraintestinal symptoms. GI Symptoms or Concerns Maurilio landis is a 39-year-old man who presents for new patient visit for new inflammatory bowel disease at the request of Dr. Ronal Cerna. This visit was conducted as a virtual visit with Maurilio''s and mother present. Maurilio''s mother was a nurse.Maurilio has been having irregular bowel movements with bleeding and bloating symptoms for about 3 months. There is no particular trigger that seem to start these symptoms, but they came on fairly gradually. Initially thought this was hemorrhoids, he does have mild hemorrhoids, but when he saw his primary care doctor, they told him that this was not consistent just with hemorrhoids. Therefore, he was scheduled for a colonoscopy, which was done with Dr. Ronal Cerna on October 30, 2019. The colonoscopy indicated patchy severe inflammation, characterized by congestion, erythema, friability, and granularity found in the rectosigmoid colon and in the cecum. The remainder of the exam was normal. Biopsies were consistent wi Functional Status Date Functional Assessmen t No Information Instructions Date Instruction Additional Infor cora -continue balsalazid e 9 pills per day. - PCV 13 vaccination today. -labs today, including kidney function and vitamin-D level. -strongly encouraged COVID-19 vaccination and discuss risks and benefits with the patient today. - discussed minimizing NSAID use as much as possible. - discussed evaluation for skin check by Dermatology. - follow-up in 1 year. Related to Other ulcerative colitis without complication IBD Folder Related to Infla mmatory bowel disease Assessments Type Assessment Date No Information Patient Care Teams Name Effective Dates (start - stop) Status Members No Information
[2024-07-02] MEDS: KETOROLAC 15 MG/ML inj IVP (17:35)
[2024-07-02] MEDS: PIPERACILLIN/TAZOBACTAM 3.375 GM in 0.9 % SODIUM CHLORIDE Mini-bag 100 ML IVPB (17:35)
[2024-07-02] MEDS: LACTATED RINGERS 1000 ML 1,000 ML 500 ML IV (17:36)
[2024-07-02] MEDS: HYDROmorphone 0.5 mg/0.5 ml inj IVP ×2 (18:11→21:40)
[2024-07-02] MEDS: LACTATED RINGERS 1000 ML 1,000 ML 125 ML IV (19:39)
--- NOTE | 2024-07-02 19:39 | P.GSCN_ITS ---
History of Present Illness Consult details Date Seen: 07/02/24 Consult date: 07/02/24 Narrative: Patient presented to the emergency department with worsening right lower quadrant abdominal pain. He says the pain started around 5:00 p.m. yesterday. It always seemed to be on the right side. He has never had pain like this before. He was able to sleep a little bit last night by lying flat. The pain continued throughout the day and worsened, causing him to come in. Denies any associated nausea or vomiting. No diarrhea. No fevers. He has never had abdominal surgery before. Patient works with [employer] and does heavy lifting on a regular basis. He is with a 4-year-old daughter. Review of Systems Status of ROS: Reports: 10 or more systems reviewed and unremarkable except as noted in History and below [facility] Medical History Ulcerative colitis ?K51.90 - Ulcerative colitis, unspecified, without complications (ICD-10) Surgical History Status post tendon repair ?Z98.890 - Other specified postprocedural states (ICD-10) Status post open reduction and internal fixation (ORIF) of fracture ?Z98.890 - Other specified postprocedural states (ICD-10) ?Z87.81 - Personal history of (healed) traumatic fracture (ICD-10) Status post lumbar spinal fusion ?Z98.1 - Arthrodesis status (ICD-10) Social History Highest level of school completed/degree received: some college, no degree Smoking Status: Never smoker Do you use any of these nicotine containing products: None How often do you have a drink containing alcohol: 2-3 times a week Alcohol type: beer How many standard drinks containing alcohol do you have on a typical day: 3 or 4 How often do you have six or more drinks on one occasion: Less than monthly AUDIT-C Alcohol total score: 5 Non-prescribed substance use: denies use Caffeine: Yes (pop) service: No Meds Home Medications and Allergies Allergies Allergy/AdvReac Type Severity Reaction Status Date / Time No Known Drug Allergies Allergy Verified 07/02/24 19:36 Exam Narrative: Exam Narrative: General: Alert and oriented, no acute distress Respiratory: Equal breath rise bilaterally, maintained on room air CV: Well perfused Abdomen: Soft, some tenderness to palpation right lower quadrant with guarding, no rebound. Non peritoneal. Mild distention. Const: Vital Signs, click to edit/add: Vital Signs - 24 hr 07/02/24 15:24 07/02/24 17:06 07/02/24 19:38 Temperature 99 F 99 F Pulse Rate [Pulse Oximeter] 85 76 Respiratory Rate 18 18 Blood Pressure [Ri ght Upper Arm] 149/94 H 145/100 H Pulse Oximetry 99 98 Oxygen Delivery Me thod Room Air Room Air Results Labs Labs: No leukocytosis, hemoglobin [address] scan report/results: report reviewed and image reviewed Progress Note:A&P Assessment and plan (1) Acute appendicitis: Status: Acute Assessment and Plan: The patient presented with a history, exam and imaging findings consistent with acute appendicitis. I discussed the treatment options with the patient including non-surgical and surgical options. I recommended laparoscopic appendectomy. The risks of surgery were reviewed with the patient including the risks of bleeding, post-operative wound or intra-abdominal infection, injury to abdominal structures and possible conversion to an open operation. We also discussed anesthetic complications including GA, stroke, respiratory failure and blood clots. The patient voiced an understanding of our conversation, had the opportunity to ask questions, agreed to accept the risks of surgery and asked that we proceed with surgery. Plan To OR for laparoscopic appendectomy
[2024-07-02] MEDS: BUPIVACAINE 0.25% 30 ML INJECTION (20:38)
--- NOTE | 2024-07-02 20:45 | PM.GSPRC ---
Operative Note Date of procedure: 07/02/24 Pre-op diagnosis: Acute appendicitis Post-op diagnosis: Same, non perforated Type of Procedure: Laparoscopic appendectomy Indications: Patient is a 44-year-old male who presented to the emergency department with clinical workup and imaging consistent with acute appendicitis. Risks and benefits of operative intervention were discussed at length with the patient. Risks included but was not limited to: Bleeding, infection, risk of damage to surrounding structures, possible need for additional procedures, possible need to convert to an open operation and postoperative complications such as pneumonia, pulmonary emboli or AL. All questions and concerns were addressed with the patient agreeing to proceed. Procedure Description: After discussing the risks and benefits of the procedure, the patient signed informed consent.? The operative site was marked and the patient was brought to the operating room and placed on the operating table in supine position.? Care was taken to pad the patient's pressure points.?? The patient was then intubated by anesthesia.?? The operative site was then prepped and draped in the usual sterile fashion.? A time-out was then performed. Entrance to the abdomen was obtained via a 5 mm optical trocar in the left upper quadrant. The abdomen was insufflated and briefly surveyed for any signs of injury. There were none. A 12 mm port was placed lateral to the umbilicus as well as a 5 mm port in the left lower quadrant under direct vision. The patient was then placed in Trendelenburg position with the right side up. The small bowel was gently moved out of the way and the appendix was in view. The distal aspect and body of the appendix was dilated, but able to be grasped and pulled into view. A mesenteric window was created between the base of the appendix and the mesoappendix. A 45 mm Endo-SHERWIN purple load stapler was then used to transect the appendix at its base. A 45 mm vascular load stapler was then used to take the mesoappendix. The staple lines were inspected for bleeding. A few areas of bleeding were controlled with several 5 mm clips. Hemostasis was then excellent. The appendix was then removed from the abdomen using an Endo-Catch bag. The specimen was sent to pathology. The 12 mm port site fascia was closed with 0 Vicryl via the Tiago-Joanne. All other ports were removed under direct visualization. The skin was then closed with absorbable subcuticular suture. Sterile dressings were then applied. Instrument sponge and needle counts were correct at the end of the case. The patient was then woken and transported to the PACU in stable condition. Findings: Acute, non perforated appendicitis Anesthesia: RICHARD Surgeon: Pascale Peraza MD Estimated blood loss (mL): 10 Specimen: Appendix Condition: stable Disposition: PACU
--- NOTE | 2024-07-02 20:57 | P.ANES_ITS ---
Anesthesia Charges Start Date/Time Anesthesia Start Date: 07/02/24 Anesthesia Start Time: 19:52 Stop Date/Time Anesthesia Stop Date: 07/02/24 Anesthesia Stop Time: 20:55 Summary Emergency: DISTRICT SALES MANAGER Coding CPT Codes CPT Codes: ANESTH SURG LOWER ABDOMEN - 47212 ([id number]) P2 - PATIENT W/MILD SYST DISEASE, QZ - DISTRICT SALES MANAGER SVC W/O COMMUNITY SPECIALIST BY Additional Codes: Summary - Emergency: DISTRICT SALES MANAGER ([id number])
--- NOTE | 2024-07-02 20:57 | W.ANESCHARGE ---
Anesthesia Charges Start Date/Time Anesthesia Start Date: 07/02/24 Anesthesia Start Time: 19:52 Stop Date/Time Anesthesia Stop Date: 07/02/24 Anesthesia Stop Time: 20:55 Summary Emergency: SENIOR MANAGER [employer] Coding CPT Codes CPT Codes: ANESTH SURG LOWER ABDOMEN - 96966 ([id number]) P2 - PATIENT W/MILD SYST DISEASE, QZ - SENIOR MANAGER [employer] SVC W/O BAR TURNER BY Additional Codes: Summary - Emergency: SENIOR MANAGER [employer] ([id number])
[2024-07-02] MEDS: HYDROCODONE-ACETAMIN 5-325 MG 1 TAB PO (23:39)
[2024-07-03] VITALS (7 sets, daily range): BP systolic 106–126; BP diastolic 68–83; PULSE 72–97; RESP 16–18; TEMP 36.4–36.6; O2SAT 91–97
[2024-07-03] MEDS: HYDROCODONE-ACETAMIN 5-325 MG 1 TAB PO ×2 (03:52→07:42)
--- NOTE | 2024-07-03 05:15 | PC.NURSE ---
Pt alert and oriented x3. Afebrile. Pt reports 5/10 pain in abdomen, pain managed with cold pack and PRN medication. Pt's 3 steri strip dressing are CDI. Pt is up ad dana, voiding, and tolerating a regular diet. ?
--- NOTE | 2024-07-03 09:20 | P.DS_ITS ---
DS: Providers Provider Date Seen: 07/03/24 Primary care physician: Dayton Madera MD Attending Physician on discharge: Pascale Peraza MD DS: Summary Hospital Course Hospital Course: Patient presented to the emergency department with clinical exam and workup consistent with acute appendicitis. He went to the operating room for laparoscopic appendectomy. No evidence of perforation. Postoperatively patient did well. His pain was well controlled on oral pain medicine, he was voiding independently, tolerating a regular diet and ambulating without difficulty. Patient was discharged to home with plans for follow-up in 2 weeks. Time Spent with Patient Time attestation: Total time spent providing and/or coordinating discharge services: Exam Narrative: Exam Narrative: General: Alert and oriented, no acute distress Abdomen: Soft, appropriately tender over incision sites. Steri-Strips in place clean/dry/intact Const: Vital Signs, click to edit/add: Vital Signs - 24 hr 07/02/24 15:24 07/02/24 17:06 07/02/24 18:30 Temperature 99 F 97.9 F Pulse Rate Pulse Rate [Pulse Oximeter] 85 76 72 Respiratory Rate 18 18 18 Blood Pressure Blood Pressure [Ri ght Arm] 151/109 H Blood Pressure [Ri ght Upper Arm] 149/94 H 145/100 H Pulse Oximetry 99 98 98 Oxygen Delivery Me thod Room Air Room Air Room Air 07/02/24 19:38 07/02/24 19:47 07/02/24 20:50 Temperature 99 F 99 F 97.1 F L Pulse Rate 82 Pulse Rate [Pulse Oximeter] 72 Respiratory Rate 18 12 Blood Pressure 162/101 H Blood Pressure [Ri ght Arm] 151/109 H Blood Pressure [Ri ght Upper Arm] Pulse Oximetry 98 98 Oxygen Delivery Me thod Room Air Room Air 07/02/24 20:55 07/02/24 21:00 07/02/24 21:05 Temperature 97.2 F L Pulse Rate 76 71 7 L Pulse Rate [Pulse Oximeter] Respiratory Rate 14 12 14 Blood Pressure 138/96 H 140/96 H 146/95 H Blood Pressure [Ri ght Arm] Blood Pressure [Ri ght Upper Arm] Pulse Oximetry 97 97 99 Oxygen Delivery Me thod Room Air Room Air Room Air 07/02/24 21:10 07/02/24 21:15 07/02/24 21:20 Temperature 97.2 F L Pulse Rate 72 75 71 Pulse Rate [Pulse Oximeter] Respiratory Rate 16 12 14 Blood Pressure 145/97 H 142/98 H 140/93 H Blood Pressure [Ri ght Arm] Blood Pressure [Ri ght Upper Arm] Pulse Oximetry 95 98 98 Oxygen Delivery Me thod Room Air Room Air Room Air 07/02/24 21:30 07/02/24 21:30 07/02/24 21:45 Temperature 97.2 F L 97.2 F L 97.9 F Pulse Rate 66 66 67 Pulse Rate [Pulse Oximeter] Respiratory Rate 16 16 16 Blood Pressure 134/99 H 134/99 H 124/93 H Blood Pressure [Ri ght Arm] Blood Pressure [Ri ght Upper Arm] Pulse Oximetry 93 93 94 Oxygen Delivery Me thod Room Air Room Air Room Air 07/02/24 22:02 07/02/24 22:15 07/02/24 22:45 Temperature 97.9 F 98 F 98 F Pulse Rate 71 67 71 Pulse Rate [Pulse Oximeter] Respiratory Rate 16 16 16 Blood Pressure 133/100 H 140/91 H 125/93 H Blood Pressure [Ri ght Arm] Blood Pressure [Ri ght Upper Arm] Pulse Oximetry 96 96 94 Oxygen Delivery Me thod Room Air Room Air Room Air 07/02/24 23:00 07/02/24 23:00 07/03/24 00:00 Temperature 97.7 F 97.8 F Pulse Rate 91 74 Pulse Rate [Pulse Oximeter] Respiratory Rate 16 16 16 Blood Pressure 130/79 126/83 Blood Pressure [Ri ght Arm] Blood Pressure [Ri ght Upper Arm] Pulse Oximetry 95 95 91 Oxygen Delivery Me thod Room Air Room Air Room Air 07/03/24 01:00 07/03/24 02:00 07/03/24 03:00 Temperature 97.8 F 97.6 F Pulse Rate 72 81 72 Pulse Rate [Pulse Oximeter] Respiratory Rate 16 16 18 Blood Pressure 114/72 106/69 111/75 Blood Pressure [Ri ght Arm] Blood Pressure [Ri ght Upper Arm] Pulse Oximetry 92 93 94 Oxygen Delivery Me thod Room Air Room Air Room Air 07/03/24 07:27 07/03/24 07:42 07/03/24 07:44 Temperature 97.9 F 97.9 F Pulse Rate Pulse Rate [Pulse Oximeter] 97 Respiratory Rate 18 16 Blood Pressure Blood Pressure [Ri ght Arm] 120/68 Blood Pressure [Ri ght Upper Arm] Pulse Oximetry 94 97 Oxygen Delivery Me thod Room Air Room Air DS: Data Data Completed and Pending Completed studies during hospitalization: Procedures Drainage of Right Knee Joint, Percutaneous Approach, Diagnostic (01/24/22) Discharge Plan Discharge Disposition: Home w/ Parent or Adult Discharging Surgeon: Pascale Peraza Follow-Up Appointment: 2 week follow up Prescriptions: New hydrocodone-acetaminophen 5-325 mg tablet 1 tab PO Q6H PRN (Reason: pain) Qty: 15 0RF senna 8.6 mg capsule 8.6 mg PO DAILY PRN (Reason: constipation) Qty: 90 0RF Continued albuterol sulfate 90 mcg/actuation HFA aerosol inhaler 2 puff inhalation Q4-6H PRN (Reason: shortness of breath or wheezing) Qty: 6.7 0RF Activity Level: No strenuous activity Activity Detail: Activity as tolerated. Avoid strenuous activity. No lifting greater than 20 lb for 2 weeks. Discharge Diet: Regular Patient Instructions: Hydrocodone (By mouth), Senna (By mouth), General Anesthesia (DC), Laparoscopic Appendectomy (DC), Post-Operative Instructions: Appendectomy Additional Instructions: You were prescribed a narcotic pain medication. In addition you may supplement with Tylenol and/or ibuprofen. Be sure to not exceed greater than 4 g of Tylenol in a 24 hour period. While on narcotic pain medicine please take stool softeners. A prescription of stool softeners has been sent to the pharmacy. Stop if having greater than 2 stools per day. You have Steri-Strips dressings in place, allow these to fall off on their own. Okay to shower starting tomorrow. Do not soak in a bath or swim for 2 weeks. Follow-up with Dr. Peraza in 2-3 weeks. Please call if you are experiencing severe pain, nausea, vomiting, difficulty urinating, fever or not had a bowel movement in 4 days after surgery. Forms: Work/School Release Follow-up: Pascale Peraza MD [Staff Physician] - 07/16/24 1:45 pm ([facility] for hospital follow-up.) Dayton Madera MD [Primary Care Provider] - Discharge Orders: Discharge Order (Routine); Ordered 07/03/24 Ordered By: Pascale Peraza
== END 2024-07-03 09:21 | disposition home or self-care (01) ==
LOC: ED 17:48 → MEDSURG 18:17 → OR 18:19 → MEDSURG 18:20
PROVIDERS: Emergency Provider Family Medicine; PCP Family Medicine; Visit Provider Surgery
PROC: 0DTJ4ZZ Resection of Appendix, Percutaneous Endoscopic Approach (ICD-10-PCS; CPT 44970; principal; 2024-07-02 20:00)
DX: K35.30 Acute appendicitis with localized peritonitis, without perforation or gangrene (principal); R10.31 Right lower quadrant pain; K40.20 Bilateral inguinal hernia, without obstruction or gangrene, not specified as recurrent; K42.9 Umbilical hernia without obstruction or gangrene
CPT/HCPCS: 44970; 00840; 74177; 88304; 99140; 99284; 99285; A9270; J0330; J0665; J1100; J1171; J1885; J2405; J2543; J2704; J3010; J3490; J7120; Q9967

== ENCOUNTER 2024-07-23 14:56 | Outpatient (CLI) | payer SELFPAY ==
--- NOTE | 2024-07-23 15:30 | CRLHL7_ITS ---
For Patients: As a result of the Cures Act, medical imaging exams and procedure reports are released immediately into your electronic medical record. You may view this report before your referring provider. If you have questions, please contact your health care provider. Indication: post op abscess vs hernia Technique: CT abdomen/pelvis with IV contrast utilizing 99 mL Isovue 370 Comparison: CT abdomen/pelvis on July 02, 2024 Findings: Lower chest: Unremarkable. Liver: Hepatic steatosis without focal lesion. Spleen: Unremarkable. Pancreas: Unremarkable. Gallbladder and bile ducts: No calcified stones or biliary ductal dilatation. Kidneys: Unremarkable. Adrenal glands: Unremarkable. GI tract: Postsurgical changes of appendectomy with a peripherally enhancing fluid collection seen at the operative bed in the right lower quadrant measuring approximately 3.3 centimeters AP x 2.7 centimeters transverse by 4.8 centimeters craniocaudal (series number 2, image 104; series number 4, image 63). No free air or free fluid. Lymph nodes: No pathologic lymphadenopathy. Vascular structures: Unremarkable. Pelvic Organs: Unremarkable. Bones: Posterior spinal fusion hardware at L4 through S1 appears intact. Plate and screw fixation hardware across the pubic symphysis also appears intact. Mild degenerative changes spine and pelvis. No acute or suspicious abnormality. Impression: Postsurgical changes of appendectomy with interval development of an abscess measuring approximately 3.3 x 2.7 x 4.8 centimeters at the operative bed in the right lower quadrant. Please note that all CT scans at this facility use dose modulation, iterative reconstruction, and/or weight-based dosing when appropriate to reduce radiation dose to as low as reasonably achievable. Dictated by Gutierrez Rizvi MD @ 07/23/2024 3:41:00 PM (Electronically Signed)
== END 2024-07-23 14:57 | disposition home or self-care (01) ==
PROVIDERS: PCP Family Medicine; Visit Provider Surgery
DX: Z87.19 Personal history of other diseases of the digestive system (principal); T81.49XA Infection following a procedure, other surgical site, initial encounter
CPT/HCPCS: 74177; Q9967